=== PATIENT | male | born 1940 | race Caucasian/White ===

== ENCOUNTER 2019-11-15 13:37 | Inpatient (IN) | payer MEDICARE, OTHER ==
[~2019-11-15] VITALS: Ht 195.6 cm; Wt 138.8 kg
[2019-11-15] MEDS ORDERED: LOPRESSOR25 MG PO (13:53)
[2019-11-15] MEDS ORDERED: LISINOPRIL10 MG PO (13:53)
[2019-11-15] MEDS ORDERED: LEVO-T175 MCG PO (13:53)
[2019-11-15] MEDS ORDERED: BUMEX2 MG PO (13:53)
[2019-11-15] MEDS ORDERED: XARELTO15 MG PO (13:54)
[2019-11-15] MEDS ORDERED: CRESTOR5 MG PO (13:54)
[2019-11-15] MEDS ORDERED: ZYLOPRIM100 MG PO (13:54)
[2019-11-15] MEDS ORDERED: JANUVIA25 MG PO (13:54)
[2019-11-15] MEDS ORDERED: PLAVIX75 MG PO (13:55)
[2019-11-15] MEDS ORDERED: NOVOLIN 70/30 110 ML SC (13:55)
[2019-11-15] MEDS ORDERED: CLARITIN 10 MG10 MG PO (13:55)
[2019-11-15] MEDS ORDERED: FISH OIL 1,0001 CA1 PO (13:55)
[2019-11-15 14:17] LABS: BASOPHILS 0.3 % (0-2); EOSINOPHILS 4.1 % (0-7); HEMOGLOBIN 9.4 g/dL (13.5-17.5); IMMATURE GRANULOCYTES 0.8 % (0-5); LYMPHOCYTES 8.7 % (15-50); MCH 29.5 pg (26.0-34.0); MCHC 31.3 g/dL (31.0-37.0); MEAN PLATELET VOLUME 9.2 fL (7.4-10.4); MONOCYTES 9.7 % (2-11); NEUTROPHILS 76.4 % (40-80); PLATELET COUNT 251 10x3/uL (130-400); RBC 3.19 10x6/uL (4.20-6.10); RDW 13.7 % (11.5-14.5); WBC 6.1 10x3/uL (4.8-10.8)
[2019-11-15 14:28] LABS: APTT 26.8 SECONDS (22.8-39.4); INR 0.98 (0.85-1.17)
[2019-11-15 14:39] LABS: CALC OSMOLALITY 306 mosm/kg (275-300); CALCIUM 8.1 mg/dL (8.5-10.1); CARBON DIOXIDE 20.5 mmol/L (21.0-32.0); CHLORIDE - SERUM 101 mmol/L (98-107); CREATININE - SERUM 3.3 mg/dL (0.6-1.3); GLUCOSE 323 mg/dL (74-106); SODIUM 133 mmol/L (136-145); UREA NITROGEN 93 mg/dL (7-18); eGFR NON AFRICAN AMERICAN 19 mL/min (90-120)
[2019-11-15 14:49] LABS: BILIRUBIN NEGATIVE (NEGATIVE); GLUCOSE 100 mg/dL (NEGATIVE); KETONE NEGATIVE (NEGATIVE); NITRITE NEGATIVE (NEGATIVE); SPECIFIC GRAVITY 1.015 (1.005-1.020); UROBILINOGEN NORMAL (NORMAL)
[2019-11-15 14:49] LABS: ALBUMIN 3.2 g/dL (3.4-5.0); ALKALINE PHOSPHATASE 69 U/L (30-120); ALT (SGPT) 17 U/L (10-68); AMYLASE - SERUM 68 U/L (25-115); BILIRUBIN - TOTAL 0.32 mg/dL (0.2-1.3); LIPASE 229 U/L (73-393)
[2019-11-15 14:50] LABS: TROPONIN-I < 0.017 ng/mL (0.000-0.060)
[2019-11-15 15:00] VITALS: BP 117/53
--- NOTE | 2019-11-15 15:46 | NUR ---
REPORT CALLED TO VILLA RN, BED NOT CLEAN, SHE WILL CALL BACK WHEN READY.
[2019-11-15 16:00] VITALS: BP 144/54
[2019-11-15 17:00] VITALS: BP 157/64
--- NOTE | 2019-11-15 17:55 | NUR ---
RECHECKED, BED STILL NOT READY.
[2019-11-15 20:00] VITALS: BP 136/60
[2019-11-15 20:29] LABS: HEMATOCRIT 27.4 % (42.0-54.0); HEMOGLOBIN 8.6 g/dL (13.5-17.5)
[2019-11-15] MEDS ORDERED: VITAMIN D5000 UNI3 PO (20:44)
[2019-11-15 22:01] VITALS: BMI 36.3
[2019-11-16] VITALS: BP 136/68
[2019-11-16 04:00] VITALS: BP 145/83
--- NOTE | 2019-11-16 04:42 | NUR ---
PT PIV TO L AC INFILTRATED, REMOVED TIP INTACT. NEW PIV STARTED IN R FOREARM, PT TOLERATED WELL. CL IN REACH, BED IN LOWEST POSITION. PT DENIES ANY PAIN OR NEEDS AT THIS TIME.
[2019-11-16 05:20] LABS: ALBUMIN 2.7 g/dL (3.4-5.0); ANION GAP 13.3 mmol/L (8-16); BILIRUBIN - TOTAL 0.31 mg/dL (0.2-1.3); CALCIUM 8.1 mg/dL (8.5-10.1); CARBON DIOXIDE 19.3 mmol/L (21.0-32.0); CREATININE - SERUM 2.8 mg/dL (0.6-1.3); MAGNESIUM - SERUM 2.1 mg/dL (1.8-2.4); PHOSPHOROUS 4.6 mg/dL (2.5-4.9); POTASSIUM - SERUM 4.6 mmol/L (3.5-5.1); PROTEIN - SERUM 5.5 g/dL (6.4-8.2)
[2019-11-16 06:13] LABS: BASOPHILS 0.6 % (0-2); EOSINOPHILS 5.2 % (0-7); HEMATOCRIT 25.7 % (42.0-54.0); HEMOGLOBIN 8.1 g/dL (13.5-17.5); IMMATURE GRANULOCYTES 0.6 % (0-5); LYMPHOCYTES 12.9 % (15-50); MCH 29.7 pg (26.0-34.0); MCHC 31.5 g/dL (31.0-37.0); MCV 94.1 fL (80.0-100.0); MEAN PLATELET VOLUME 9.9 fL (7.4-10.4); MONOCYTES 12.7 % (2-11); PLATELET COUNT 218 10x3/uL (130-400); RBC 2.73 10x6/uL (4.20-6.10); RDW 13.9 % (11.5-14.5); WBC 4.8 10x3/uL (4.8-10.8)
--- NOTE | 2019-11-16 08:00 | NUR ---
PT RECEIVED AWAKE AND ALERT. STATES STILL HAVING BLACK STOOLS. NO OTHER COMPLAINTS OTHER THAN WANTS TO EAT.
[2019-11-16 08:08] LABS: HEMATOCRIT 25.9 % (42.0-54.0); HEMOGLOBIN 8.3 g/dL (13.5-17.5)
[2019-11-16 09:25] VITALS: BP 124/63
[2019-11-16 12:00] VITALS: BP 136/71
[2019-11-16 13:06] VITALS: Ht 195.6 cm; Wt 138.8 kg
[2019-11-16 15:48] LABS: HEMATOCRIT 25.4 % (42.0-54.0); HEMOGLOBIN 8.1 g/dL (13.5-17.5)
[2019-11-16 16:30] VITALS: BP 139/72
--- NOTE | 2019-11-16 19:46 | NUR ---
RECEIVED UP IN BED WITH EYES OPEN AND TV ON. ALERT AND ORIENTED X4. UP AD KENNETH. UPSET AT THIS TIME D/T IT TAKING SO LONG TO ANSWER HIS CALL LIGHT AND IV PUMP GOING OFF. APOLOGIZED TO HIM AND ASK NURSE UP FRONT TO PLEASE LET ME KNOW IF THEY HEAR IV PUMP. IV TO RT FA WITH NS @ 100CC/HR. PROTONIX ALSO INFUSING AT 10CC/HR. DENIES ANY OTHER NEEDS.
[2019-11-16 20:00] VITALS: BP 136/66
[2019-11-17 00:01] VITALS: BP 130/61
[2019-11-17 02:42] LABS: HEMATOCRIT 24.7 % (42.0-54.0); LYMPHOCYTES 12.6 % (15-50); MCH 30.1 pg (26.0-34.0); MCHC 32.4 g/dL (31.0-37.0); MCV 92.9 fL (80.0-100.0); NEUTROPHILS 73.3 % (40-80); PLATELET COUNT 202 10x3/uL (130-400); RBC 2.66 10x6/uL (4.20-6.10); RDW 14.1 % (11.5-14.5); WBC 4.7 10x3/uL (4.8-10.8)
[2019-11-17 02:51] LABS: ANION GAP 14.1 mmol/L (8-16); CALCIUM 7.8 mg/dL (8.5-10.1); CARBON DIOXIDE 19.4 mmol/L (21.0-32.0); CREATININE - SERUM 2.6 mg/dL (0.6-1.3); MAGNESIUM - SERUM 1.9 mg/dL (1.8-2.4); POTASSIUM - SERUM 4.5 mmol/L (3.5-5.1)
[2019-11-17 04:00] VITALS: BP 140/73
[2019-11-17 08:03] VITALS: BP 128/64
--- NOTE | 2019-11-17 09:05 | NUR ---
PT AGITATED ABOUT NOT GETTING ANY REST AND WANTING TO GO HOME. LABS STABLE FOR HGB AND BUN/CREAT IMPROVED.
--- NOTE | 2019-11-17 11:28 | NUR ---
PT WAS GOING TO LEAVE AMA BUT DR ZAFAR TALKED WITH HIM AND DID DISCHARGE ORDER. HOWEVER HE DID NOT WAIT FOR PAPERWORK PRIOR TO LEAVING. PRINTED OFF INSTRUCTIONS FOR FOLLOW UP.
== END 2019-11-17 11:31 | disposition home or self-care (01) | DRG 378 ==
LOC: D.ER 13:37 → D.M2 15:25
PROVIDERS: Family Medicine; ADMIT Internal Medicine Nephrology; ATTEND Internal Medicine Nephrology
DX: K92.2 Gastrointestinal hemorrhage, unspecified (principal); N17.9 Acute kidney failure, unspecified; E87.1 Hypo-osmolality and hyponatremia; D64.9 Anemia, unspecified; E87.6 Hypokalemia; I10 Essential (primary) hypertension; E78.5 Hyperlipidemia, unspecified; E11.9 Type 2 diabetes mellitus without complications; E03.9 Hypothyroidism, unspecified

== ENCOUNTER 2019-11-28 06:19 | Day surgery (SDC) | payer MEDICARE, OTHER ==
[~2019-11-28] VITALS: Ht 195.6 cm; Wt 139.1 kg
--- NOTE | ~2019-11-28 | OP ---
PATIENT NAME: REHAN SAINI MEDICAL RECORD: [id number] :38 [facility] DATE: SURGEON: VENTURA PANDEY DO DATE OF OPERATION: 11/28/2019 PROCEDURE: EGD with biopsies and colonoscopy with polypectomy. INDICATIONS FOR PROCEDURE: Anemia, melena, abnormal findings on CT scan. SCOPE: Olympus video gastroscope and pediatric colonoscope. MEDICATIONS: Propofol 650 mg IV per anesthesia between both procedures. WITHDRAWAL TIME: On colonoscopy, 23 minutes. ESTIMATED BLOOD LOSS: Minimal. COMPLICATIONS: None. FINDINGS AND DESCRIPTION OF PROCEDURE: Informed consent was given. The patient was made comfortable with the above medication and placed in his left side. The endoscope was advanced under direct visualization through the mouth to the second portion of the duodenum with ease. The esophagus appeared normal. At the GE junction, there were minor changes consistent with LA class A reflux-induced esophagitis. Cold forceps biopsies were taken at the GE junction to submit for histopathology. The endoscope was advanced beyond the GE junction into the stomach and retroflexed to view the cardia, where a small sliding hiatal hernia was present. The fundus and body of the stomach appeared normal. In the antrum and prepyloric regions, there was some erythema and granularity consistent with mild gastritis. The endoscope was advanced beyond the pylorus into the small bowel, which appeared normal to the second portion. The endoscope was then withdrawn back into the stomach and biopsies were taken from the antrum and incisura to submit for histopathology and to rule out the presence of H. pylori. The endoscope was withdrawn from the patient. The patient was then turned around. A digital rectal examination was performed and it was normal. The endoscope was advanced under direct visualization through the rectum to the cecum, confirmed by the presence of the appendiceal orifice and ileocecal valve. The endoscope was slowly withdrawn. Mucosa was carefully examined. The prep quality was fair. There were 2 polyps visualized in the cecum. One measured approximately 1.2 cm in size. It was benign appearing and sessile. It was removed using endoscopic mucosal resection technique with injection of normal saline followed by snare polypectomy. The defect of this polyp was closed using a single endoclip for tissue positioning. The second polyp in the cecum was near the appendiceal orifice. It was sessile and benign-appearing and measured approximately 7-mm in diameter. It was removed using hot snare. In the ascending colon, there was another benign appearing sessile polyp, which measured approximately 6-mm in diameter. It was removed using a snare. There were no other polyps visualized on today's examination. There was mild diverticulosis involving the sigmoid colon. Retroflexion was performed in the rectum with visualization of grade I internal hemorrhoids without bleeding. The endoscope was withdrawn from the patient. The patient tolerated the procedure well and there were no complications. IMPRESSION: 1. LA class A reflux-induced esophagitis. OPERATIVE REPORT [id number] REHAN SAINI 2. Small sliding hiatal hernia. 3. Mild gastritis. 4. Three polyps located in the colon, which were removed using a combination of endoscopic mucosal resection technique and hot snare polypectomy. 5. Mild diverticulosis. 6. Grade I internal hemorrhoids without bleeding. PLAN AND RECOMMENDATIONS: 1. Discharge home when recovery parameters are met. 2. Follow up biopsy specimen results. 3. GERD diet and reflux precautions as well as a high fiber diet. 4. Continue current medications. 5. Okay to resume anticoagulants in 48 hours. 6. Follow up in GI clinic as needed. 7. No further colonoscopies are necessary for screening purposes. TRANSINT:[id number] Voice Confirmation ID: [id number] DOCUMENT ID: [id number] VENTURA PANDEY DO CC: [id number] DICTATION DATE: 11/28/19941 SOLUTION STRATEGIST: 11/28/19 1526 [facility] 11/28/[address] [facility] [address] [place] [address]
[~2019-11-28 06:19] MED LIST: BUMEX2 MG PO; CLARITIN 10 MG10 MG PO; CRESTOR5 MG PO; FISH OIL 1,0001 CA1 PO; JANUVIA25 MG PO; LEVO-T175 MCG PO; LISINOPRIL10 MG PO; LOPRESSOR25 MG PO; NOVOLIN 70/30 110 ML SC; PLAVIX75 MG PO; VITAMIN D5000 UNI3 PO; XARELTO15 MG PO; ZYLOPRIM100 MG PO
[2019-11-28 06:59] LABS: ALBUMIN 3.2 g/dL (3.4-5.0); ANION GAP 13.5 mmol/L (8-16); BILIRUBIN - TOTAL 0.32 mg/dL (0.2-1.3); CALCIUM 8.6 mg/dL (8.5-10.1); CARBON DIOXIDE 21.6 mmol/L (21.0-32.0); CREATININE - SERUM 2.4 mg/dL (0.6-1.3); POTASSIUM - SERUM 4.1 mmol/L (3.5-5.1); PROTEIN - SERUM 6.7 g/dL (6.4-8.2)
[2019-11-28 07:04] LABS: BASOPHILS 0.2 % (0-2); EOSINOPHILS 6.1 % (0-7); HEMATOCRIT 30.1 % (42.0-54.0); HEMOGLOBIN 9.5 g/dL (13.5-17.5); IMMATURE GRANULOCYTES 0.4 % (0-5); LYMPHOCYTES 14.6 % (15-50); MCH 29.1 pg (26.0-34.0); MCHC 31.6 g/dL (31.0-37.0); MCV 92.3 fL (80.0-100.0); MEAN PLATELET VOLUME 9.5 fL (7.4-10.4); NEUTROPHILS 66.7 % (40-80); PLATELET COUNT 241 10x3/uL (130-400); RBC 3.26 10x6/uL (4.20-6.10); RDW 13.3 % (11.5-14.5); WBC 4.6 10x3/uL (4.8-10.8)
[2019-11-28] MEDS ORDERED: PROTONIX40 MG PO (07:11)
[2019-11-28] MEDS ORDERED: CARAFATE1 G PO (07:11)
[2019-11-28 07:44] VITALS: BP 124/67; Ht 195.6 cm; Wt 139.1 kg
--- NOTE | 2019-11-28 10:06 | NUR ---
DC INSTRUCTIONS GIVEN TO PT. STATES UNDERSTANDING. DC'D IV CATH FULLY INTACT.
--- NOTE | 2019-11-28 10:13 | NUR ---
PT LEFT UNIT VIA WC AT 1014
== END 2019-11-28 10:14 | disposition home or self-care (01) ==
LOC: D.OPS 06:19
PROVIDERS: Anesthesiology; ATTEND Internal Medicine Gastroenterology
DX: D64.9 Anemia, unspecified (principal); K92.1 Melena; R93.89 Abnormal findings on diagnostic imaging of other specified body structures; K63.5 Polyp of colon; E11.9 Type 2 diabetes mellitus without complications; E07.9 Disorder of thyroid, unspecified; Z79.4 Long term (current) use of insulin